=== PATIENT | female | born 1965 | race Caucasian/White ===

== ENCOUNTER 2018-01-19 06:55 | Day surgery (SDC) | payer BC ==
[~2018-01-19 06:55] MED LIST: LACTATED RINGERS 1,000 ML IV SCH; MARCAINE 0.25% INFILTRATI ONE; VERSED IV NR
[2018-01-19] MEDS ORDERED: MARCAINE 0.25% INFILTRATI ONE ×2 (07:22→10:05)
[2018-01-19] MEDS ORDERED: ZOFRAN ONE (07:28)
[2018-01-19] MEDS ORDERED: DIPRIVAN 10 MG/ML IV ONE (07:28)
[2018-01-19] MEDS ORDERED: XYLOCAINE MPF 2% ONE (07:28)
[2018-01-19] MEDS ORDERED: DECADRON ONE (07:28)
[2018-01-19] MEDS ORDERED: DILAUDID ONE (07:29)
--- NOTE | 2018-01-19 08:05 | Anesthesia Consultation ---
Anesthesia Consult and Med Hx Date of service: 01/19/18 - Airway Anesthetic Teeth Evaluation: Good ROM Head & Neck: Adequate Mental/Hyoid Distance: Adequate Mallampati Class: Class II Intubation Access Assessment: Good - Pulmonary Exam CTA: Yes - Cardiac Exam Cardiac Exam: RRR - Pre-Operative Health Status ASA Pre-Surgery Classification: ASA2 Proposed Anesthetic Plan: General - Pulmonary Hx Smoking: No Hx Sleep Apnea: No (ALYSSA PRE SCREEN HIGH RISK) - Cardiovascular System Hx Hypertension: Yes (X 7 YRS) - Endocrine Hx Non-Insulin Dependent Diabetes: Yes - Hematic Hx Anemia: Yes (NOT RECENT) - Additional Comments Anesthesia Medical History Comments: Hypercholesterolemia. NAC.
--- NOTE | 2018-01-19 08:06 | Anesthesia Day of Surgery ---
Anesthesia Day of Surgery - Day of Surgery Patient Examined: Yes Patient H&P Reviewed: Yes Patient is NPO: Yes
[2018-01-19] MEDS ORDERED: ANCEF/STERILE WATER 2 GM/20 ML IV NR (09:00)
[2018-01-19] MEDS ORDERED: PEPCID IV NR (09:00)
[2018-01-19] MEDS ORDERED: ZOFRAN IV PRN (09:20)
[2018-01-19] MEDS ORDERED: TORADOL IV PRN (09:20)
[2018-01-19] MEDS: DILAUDID IV PRN ×2 (11:01→11:14)
--- NOTE | 2018-01-19 11:07 | Operative Report ---
PREOPERATIVE DIAGNOSIS: Left knee with degenerative joint disease, meniscal tear. POSTOPERATIVE DIAGNOSES: 1. Left knee with complex tear, medial meniscus body extending in the posterior horn. 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 medial compartment. 3. Grade 3 chondromalacia patella. 4. Grade 3 chondromalacia trochlear groove. 5. Extensive synovitis. PROCEDURE PERFORMED: 1. Left knee arthroscopy with partial medial meniscectomy. 2. Synovectomy, extensive. 3. Chondroplasty medial femoral condyle. 4. Chondroplasty, patella. 5. Chondroplasty, trochlear groove. SURGEON: Enzo Mehta MD. [employer]: Alon Calzada CSA. ANESTHESIA: General. ESTIMATED BLOOD LOSS: Minimal. COMPLICATIONS: None. DESCRIPTION OF PROCEDURE: The patient underwent successful induction of anesthesia. The lower extremity was positioned in a leg dobbins after exsanguination, prepped and draped in usual fashion. Antibiotics were preadministered. Arthroscopy was carried out utilizing standard medial and lateral portal was made. Systematic exam of the joint was carried out demonstrating the findings noted. Tricompartmental synovitis was noted, which was quite extensive, which was appropriately debrided. Lateral compartment was pristine. The articular surface and meniscus notch demonstrated normal ACL and PCL. Patellofemoral compartment demonstrated focal grade 3 chondromalacia centrally as well as in the trochlear groove. General chondroplasty affected with a full resector and a surface approximately a noncontact chondral sparing mode. The primary pathology was the medial compartment with extensive chondromalacia noted especially on the femoral condyle diffusely grade 3 near four areas. General chondroplasty affected again with a full resector and surface and a low power setting. The meniscus demonstrated a complex tear involving the body extending almost to near the periphery. This had a combination of a parrot-beak flap tear component as well as a horizontal cleavage. This would be the combination of bites full resector surface. Excellent stable rim was achieved. This did necessitate resection of the peripheral third at its apex. Tapered to a more elliptical rim posteriorly and anterior lung medial body. A thorough examination and irrigation, debridement joint was carried out both portals. Intraoperative photos were obtained for documentation. Joints were copiously irrigated and ports were closed with nylon sutures. Steri-Strips applied. He was taken to the recovery room in satisfactory condition having tolerated the procedure well. [facility]# [id number] SHONA/NTS
[2018-01-19] MEDS ORDERED: NORCO 5/325 PO SCH (11:55)
--- NOTE | 2018-01-19 16:07 | Post Anesthesia Evaluation ---
- Post Anesthesia Evaluation Patient Participated: Yes Airway Patent: Yes Stable Respiratory Function: Yes Nausea/Vomiting: No Temp > 96.8F: Yes Pain Manageable: Yes Adequeate Hydration: Yes Anesthesia Complications: No Block Receding Appropriately: Not Applicable
[2018-01-19 18:22] VITALS: BP 131/78
== END 2018-01-19 13:10 | disposition home or self-care (01) ==
LOC: OR 06:55
PROVIDERS: ATTEND Orthopaedic Surgery
DX: S83.232A Complex tear of medial meniscus, current injury, left knee, initial encounter (principal); M22.42 Chondromalacia patellae, left knee; M94.262 Chondromalacia, left knee; M17.12 Unilateral primary osteoarthritis, left knee; I10 Essential (primary) hypertension; E11.9 Type 2 diabetes mellitus without complications; Z79.899 Other long term (current) drug therapy; X58.XXXA Exposure to other specified factors, initial encounter; Y93.89 Activity, other specified; Y92.89 Other specified places as the place of occurrence of the external cause; Y99.8 Other external cause status
CPT/HCPCS: 29876; 29881; 81025; 82962; J1100; J1170; J1885; J2250; J2405; J2704; J7120